=== PATIENT | male | born 1980 | race Two or more races ===

== ENCOUNTER 2025-03-27 02:21 | Emergency (ER) | payer MEDICAID, SELFPAY ==
[2025-03-27 02:22] VITALS: BMI 37.1
--- NOTE | 2025-03-27 02:30 | XR_ITS ---
Examination: Venous duplex lower extremity sonogram, bilateral. Date and time of exam: March 27, 2025, 1523 hours INDICATIONS: Paresthesias and pain in the lower extremities beginning 2 days ago Technique: Multiple sonographic images of the deep venous system have been obtained. B-mode/2-D grayscale imaging of vascular structures and Doppler spectral analysis (waveforms) and color performed Both legs are examined. Findings: Deep venous systems do not demonstrate abnormal echogenicity. All visualized deep veins exhibit compressibility. All visualized deep veins exhibit augmentation. Impression: Negative for deep vein thrombosis
[2025-03-27 03:03] LABS: Basophils # (Auto) 0.0 Thou/mm3 (0.0-0.2); Basophils % (Auto) 0 % (0-2.5); Eosinophils # (Auto) 0.1 Thou/mm3 (0.0-0.5); Eosinophils % (Auto) 2 % (0-10); Hematocrit 40.3 % (41.0-53.0); Hemoglobin 13.5 g/dL (13.5-16.0); Immature Granulocytes Auto 0.03 Thou/mm3 (0.00-0.00); Lymphocytes # (Auto) 3.1 Thou/mm3 (1.0-4.8); Lymphocytes % (Auto) 46 % (10-50); Mean Corpuscular HGB Conc 33.5 g/dl (31.0-37.0); Mean Corpuscular Hemoglobin 28.2 pg (25.0-35.0); Mean Corpuscular Volume 84 fL (80-100); Monocytes # (Auto) 0.4 Thou/mm3 (0.0-0.8); Monocytes % (Auto) 6 % (0-12); Neutrophils # (Auto) 3.1 Thou/mm3 (1.8-7.7); Neutrophils % (Auto) 46 % (37-80); Nucleated Red Blood Cell # 0.00 Thou/mm3 (0.00-0.00); Nucleated Red Blood Cell % 0 /100 WBC (0); Platelet Count 166 Thou/mm3 (140-440); RDW Standard Deviation 37.8 fL (35.1-43.9); Red Blood Count 4.78 Miln/mm3 (4.50-5.90); White Blood Count 6.7 Thou/mm3 (3.8-10.6)
[2025-03-27 03:26] LABS: Alanine Aminotransferase 13 U/L (10-49); Albumin, Serum 4.4 gm/dL (3.5-5.0); Albumin/Globulin Ratio 1.8 (1.2-2.2); Alkaline Phosphatase 63 U/L (46-116); Anion Gap 9 (7-16); Aspartate Amino Transferase 14 U/L (0-34); BUN/Creatinine Ratio 16 Ratio (12-20); Bilirubin,Total 0.4 mg/dL (0.3-1.2); Blood Urea Nitrogen 13 mg/dL (9-23); Calcium 9.4 mg/dL (8.3-10.6); Calcium (Corrected) 9.4 mg/dL (8.5-10.1); Carbon Dioxide 25.3 mMol/L (20.0-31.0); Chloride 106 mMol/L (98-107); Creatinine (Component) 0.8 mg/dL (0.6-1.3); Estimated Creatinine Clearance 132.0 mL/min (>60); Globulin 2.5 gm/dL (2.3-3.5); Glucose 100 mg/dL (74-106); Osmolality,Calculated 279 (275-295); Potassium 3.7 mMol/L (3.4-5.1); Sodium 140 mMol/L (136-145); Total Protein 6.9 gm/dL (5.7-8.2); eGFR > 60 See Note
[2025-03-27 03:44] LABS: Amphetamine/Methamp Scrn,U Negative (Negative); Barbiturate Screen,Urine Negative (Negative); Benzodiazepines Screen,Urine Negative (Negative); Benzoylecgonine Screen, Ur Negative (Negative); Fentanyl Screen,Urine Negative (Negative); Opiate Screen,Urine Negative (Negative); THC Screen,Urine Negative (Negative)
--- NOTE | 2025-03-27 04:30 | PRELIM_ITS ---
Bilateral lower extremity venous Doppler ultrasound. March 27, 2025 at 0323 hours Clinical history: Rule out deep vein thrombosis. Technique: Duplex scan of the bilateral lower extremity deep venous systems was performed utilizing 2D grayscale imaging, Doppler spectral analysis and color flow Doppler and with compression. Comparison: No prior study is available for comparison. Findings: Oliveira scale, color flow and spectral Doppler evaluation of the lower extremity deep veins was performed. Right: The common femoral, superficial femoral and popliteal veins are patent and compressible. Normal respiratory variation is noted. There is no evidence of occlusive or nonocclusive thrombus. The great saphenous vein is patent at the level of the saphenofemoral junction. The posterior tibial and peroneal veins are patent to the extent visualized. Left: The common femoral, superficial femoral and popliteal veins are patent and compressible. Normal respiratory variation is noted. There is no evidence of occlusive or nonocclusive thrombus. The great saphenous vein is patent at the level of the saphenofemoral junction. The posterior tibial and peroneal veins are patent to the extent visualized. Impression: No sonographic evidence of deep venous thrombosis in both lower extremities. Report Electronically Signed By: Serafin Blackman 03/27/2025 4:29:53 AM [EST]
--- NOTE | 2025-03-27 05:05 | PD.EDADULT ---
ED General RME/HPI General Chief complaint: General Adult/Misc Complain Stated complaint: REYNA ARM/LEG TINGLING AND VEIN POP OUT Time Seen by Provider: 03/27/25 02:30 Source: patient Arrival date/time: 03/27/25 02:21 This is a case of a 45-year-old male with history of hypertension hyperlipidemia and atrial fibrillation on Eliquis came in in the emergency room due to bilateral leg pain since last night tingling's sensation no numbness no weakness no injury or trauma no swelling patient verbalized that he is not able to sleep due to pain of the leg pain and become anxious denies any injury or trauma Limitations: no limitations Related Data Home Medications ?Medication ?Instructions ?Recorded ?Confirmed apixaban 5 mg tablet (Eliquis) 5 mg PO BID 06/12/23 06/12/23 aspirin 81 mg tablet,delayed 81 mg PO QDAY 06/12/23 06/12/23 release atorvastatin 80 mg tablet 80 mg PO QDAY 06/12/23 06/12/23 carvedilol 6.25 mg tablet 6.25 mg PO BID 06/12/23 06/12/23 penicillin V potassium 500 mg 500 mg PO BID 06/12/23 06/12/23 tablet ticagrelor 90 mg tablet (Brilinta) 90 mg PO QDAY 06/12/23 06/12/23 valsartan 80 mg tablet 80 mg PO QDAY 06/12/23 06/12/23 Previous Rx's ?Medication ?Instructions ?Recorded hydroxyzine HCl 25 mg tablet 25 mg PO BID PRN anxiety #10 tabs 03/27/25 Allergies Allergy/AdvReac Type Severity Reaction Status Date / Time No Known Allergies Allergy Verified 06/12/23 09:46 Review of Systems Review of Systems Systems Reviewed: All systems reviewed, normal except as documented Constitutional Constitutional: Reports system reviewed and no additional complaints, except as documented and Reports as per HPI Cardiovascular Cardiovascular: Reports system reviewed and no additional complaints, except as documented and Reports as per HPI Respiratory Respiratory: Reports system reviewed and no additional complaints, except as documented and Reports as per HPI Gastrointestinal Gastrointestinal: Reports system reviewed and no additional complaints, except as documented and Reports as per HPI Genitourinary Genitourinary: Reports system reviewed and no additional complaints, except as documented and Reports as per HPI Musculoskeletal Musculoskeletal: Reports system reviewed and no additional complaints, except as documented and Reports as per HPI Neurologic Neurologic: Reports system reviewed and no additional complaints, except as documented and Reports as per HPI Past Medical History Past Medical History CARDIAC: Positive Cardiac Disorders, Coronary Artery Disease, Hypercholesterolemia and Hypertension; Negative Congestive Heart Failure RESPIRATORY: Negative Chronic Obstructive Pulmonary Disease (COPD) GENITOURINARY: Negative Renal Disease ENDOCRINE: Negative Diabetes Mellitus Type 1 or Diabetes Mellitus Type 2 Surgical History SURGICAL: Positive Cardiac Surgery and Coronary Stent (x2 05/2023 pt. states 3 wks ago unknown exact date) Social History SMOKING STATUS: Former smoker SUBSTANCE USE: does not use ED Exam General Limitations: Present no limitations General appearance: Present alert, in no apparent distress and other (Patient is awake alert oriented not in distress nontoxic looking well-hydrated well-nourished) Head Head exam: Present atraumatic, normocephalic and normal inspection Eye Eye exam: Present normal appearance, PERRL and EOMI ENT ENT exam: Present normal exam, normal oropharynx and mucous membranes moist Neck Neck exam: Present normal inspection, full ROM and trachea midline; Absent tenderness Chest Chest inspection: Present normal inspection and symmetric chest wall rise; Absent tenderness, rash or abscess Respiratory Respiratory exam: Present normal lung sounds bilaterally; Absent respiratory distress, wheezes, stridor, accessory muscle use or prolonged expiratory phase Cardiovascular Cardiovascular exam: Present regular rate, normal rhythm and normal heart sounds; Absent bradycardia, tachycardia, irregular rhythm, systolic murmur or diastolic murmur Abdominal Exam Abdominal exam: Present soft and normal bowel sounds; Absent distention, tenderness, guarding, rebound, rigidity, diminished bowel sounds, hyperactive bowel sounds, hypoactive bowel sounds or organomegaly Extremities Exam Extremities exam: Present normal inspection and full ROM Expanded Lower Extremity Exam Hip/Pelvis exam: Present normal inspection and full ROM; Absent tenderness or swelling Upper leg exam: Present normal inspection and full ROM; Absent tenderness or swelling Knee exam: Present normal inspection and full ROM; Absent tenderness or swelling Lower leg exam: Present normal inspection, full ROM and other (Negative Macias sign); Absent tenderness, swelling, abrasion, laceration, ecchymosis, deformity, crepitus, dislocation, erythema, palpable cord, Homans' sign or Achilles tendon intact Ankle exam: Present normal inspection and full ROM; Absent tenderness or swelling Foot/toe exam: Present normal inspection and full ROM; Absent tenderness or swelling Back Exam Back exam: Present normal inspection and full ROM Neurological Exam Neurological exam: Present alert, oriented X3, CN II-XII intact, normal gait and reflexes normal; Absent motor sensory deficit Psychiatric Psychiatric exam: Present normal affect, normal mood, anxious and other (No hallucination no delusion); Absent depressed, agitated, flat affect, manic, homicidal ideation or suicidal ideation Skin Skin exam: Present warm, dry, intact and normal color Course Quality Measures none Orders Category Date Time Status US venous doppler LE BI Stat Exams 03/27/25 02:30 Taken CBC Stat Lab 03/27/25 02:51 Completed CMP [Comprehensive Metabolic Panel] Stat Lab 03/27/25 02:51 Completed Drug Screen,Urine Stat Lab 03/27/25 02:15 Completed LORazepam [Ativan] Med 03/27/25 04:55 Discontinued 1 mg PO X1 ONE Vital Signs Vital signs: Vital signs stable Discharge Plan Plan Patient Disposition: HOME (Self Care) Patient condition on transfer: Stable Prescriptions/Referrals Prescriptions/Med Rec: New hydroxyzine HCl 25 mg tablet 25 mg PO BID PRN (Reason: anxiety) Qty: 10 0RF No Action atorvastatin 80 mg tablet 80 mg PO QDAY carvedilol 6.25 mg tablet 6.25 mg PO BID valsartan 80 mg tablet 80 mg PO QDAY penicillin V potassium 500 mg tablet 500 mg PO BID aspirin 81 mg tablet,delayed release (DR/EC) 81 mg PO QDAY Brilinta 90 mg tablet 90 mg PO QDAY Eliquis 5 mg tablet 5 mg PO BID Referrals: Wily Arriaga MD [Primary Care Provider] - In 1 week Problem List Clinical Impression: Bilateral leg pain, Anxiety Patient/Caregiver Discharge Instructions Education Materials: ED Anxiety Reaction, ED Muscle Strain, Extremity Additional Instructions: Follow-up with your primary care physician in 2 days for reevaluation and to be referred to psychiatry psychologist for your anxiety recurrence persistent worsening symptoms or any emergent concern call 911 or go to the nearest emergency room take your medication as directed Print Language: Icelandic Stand Alone Forms: [employer] Info., Work/School Release, Patient Portal Info Letter PA/[employer]ANCE [employer] REP Supervising Physician PA/[employer] REP Supervising Physician: Dr. Velazquez MDM Narrative MDM hospital course: This is a case of a 45-year-old male with history of hypertension hyperlipidemia and atrial fibrillation on Eliquis came in in the emergency room due to bilateral leg pain since last night tingling's sensation no numbness no weakness no injury or trauma no swelling patient verbalized that he is not able to sleep due to pain of the leg pain and become anxious denies any injury or trauma physical examination patient is awake alert oriented not in distress nontoxic looking well-hydrated well-nourished lungs sound is clear no crackles or rales Rultract: Stridor heart normal rate regular rhythm no murmur both lower extremities exam were normal no tenderness no swelling ROM intact motor or sensory reflex were all normal negative Macias signs negative Homans signs no claudication to suggest DVT or peripheral vascular disease no calf tenderness patient blood test showed no leukocytosis no anemia kidney and liver function is normal no electrolyte imbalance both ultrasound of both legs were normal no DVT at this point patient was given a Ativan per patient request patient due to anxiety and was discharged with hydroxyzine for his anxiety and trouble sleeping he was advised to follow-up with PCP in 2 days for reevaluation and to be referred to psychiatry psychologist for his leg pain for any worsening symptoms or any emergent concern he will return to the emergency room immediately or call 911 Patient was discharged with comfortable condition walking with stable gait. Patient verbalized no further complains explained diagnosis and answered patient question. Patient is comfortable with the proposed management plan including the need to follow up with his/her primary care physician and any specialist if applicable Discussed patient for any urgent condition or worsening sx, He/She needed to go to emergency room immediately or call 911. Patient acknowledge the responsibility to follow up as instructed and to monitor her/his symptoms. For any persistence of the symptoms for more than 3-5 days return precaution advised. Discussed the result of the test and was given printed discharge instruction Clinical Information Provided by patient other: None Medical Records Reviewed [facility] Reviewed Meds/Rx Considered, not Ordered Describe details: Given Labs/Rad/Tests considered, not Ordered Describe details: Reviewed Chronic Illness/Social Conditions which may negatively complicate care or outcome(s)-explain: None or not applicable EKG EKG not done Lab Interpretation Lab(s) interpretation(s): Reviewed Imaging Provider imaging interpretation(s): Reviewed Radiology reports / interpretation(s): Reviewed Medication Administration(s) Medication Administration History Discontinued Medications Lorazepam (Lorazepam 0.5 Mg Tablet) 1 mg PO X1 ONE Stop: 03/27/25 04:56 Given Diagnosis Differential diagnosis: Leg pain Differential dx and/or dx ruled out: Leg pain Most likely dx, and/or detailed dx discussion: Leg pain anxiety Dispositon Disposition: Discharge Home
[2025-03-27 05:06] VITALS: BP 128/86; PULSE 72; RESP 18; TEMP 36.8; O2SAT 98
== END 2025-03-27 05:08 | disposition home or self-care (01) ==
PROVIDERS: Nurse Practitioner Family; Emergency Provider Emergency Medicine; PCP Family Medicine
DX: M79.605 Pain in left leg (principal); M79.604 Pain in right leg; F41.9 Anxiety disorder, unspecified; I10 Essential (primary) hypertension; E78.5 Hyperlipidemia, unspecified; I48.91 Unspecified atrial fibrillation
CPT/HCPCS: 36415; 80053; 80307; 85025; 93970; 99283; A9270